=== PATIENT | male | born 1960 | race Caucasian/White ===

== ENCOUNTER 2016-11-03 10:21 | Emergency (ER) | payer OTHER ==
[~2016-11-03] VITALS: Ht 190.5 cm; Wt 69.9 kg
[~2016-11-03 10:21] MED LIST: SERAQUIL; [UNRECOGNIZED DRUG - OTHER]; [UNRECOGNIZED DRUG - OTHER]; hydrochlorothiazide; lipitor; norco; soma
[2016-11-03] MEDS ORDERED: LIDOCAINE VISCOUS 2% 15ML UD ONE (11:42)
[2016-11-03 12:00] VITALS: BP 109/58
[2016-11-03 12:26] LABS: Urine Bilirubin Negative (Negative); Urine Blood Negative /uL (Negative); Urine Color Yellow (Yellow); Urine Glucose Normal (Normal); Urine Ketone Negative (Negative); Urine Nitrite Negative (Negative); Urine RBC 2 /hpf (0 - 3); Urine Urobilinogen Normal (Negative); Urine pH 6.5 (5.0-8.0)
== END 2016-11-03 13:25 | disposition home or self-care (01) ==
LOC: ER 10:21
DX: R33.9 Retention of urine, unspecified (principal); I10 Essential (primary) hypertension; E78.5 Hyperlipidemia, unspecified; Z90.49 Acquired absence of other specified parts of digestive tract; Z87.891 Personal history of nicotine dependence; Z85.46 Personal history of malignant neoplasm of prostate
CPT/HCPCS: 51702; 81001